=== PATIENT | male | born 1960 | race Caucasian/White ===

== ENCOUNTER 2019-03-18 03:04 | Inpatient (IN) | payer OTHER, MEDICARE ==
[2019-03-18] VITALS (8 sets, daily range): BP systolic 107–166; BP diastolic 51–70
[~2019-03-18] VITALS: Ht 177.8 cm; Wt 74.8 kg
[2019-03-18] MEDS ORDERED: TRAMADOL 50 MG50 MG PO (03:23)
[2019-03-18] MEDS ORDERED: TOPROL XL100 MG PO (03:23)
[2019-03-18] MEDS ORDERED: SYNTHROID150 MCG PO (03:24)
[2019-03-18] MEDS ORDERED: CHLORTHALIDONE25 MG PO (03:25)
[2019-03-18] MEDS ORDERED: VITAMIN D250000 UNIT PO (03:25)
[2019-03-18] MEDS ORDERED: ACTOS 45 MG45 M1 PO (03:25)
[2019-03-18] MEDS ORDERED: TAMBOCOR 100 M100 M1 PO (03:25)
[2019-03-18] MEDS ORDERED: LIPITOR20 MG PO (03:26)
[2019-03-18] MEDS ORDERED: KLOR-CON M2020 MEQ PO (03:26)
[2019-03-18] MEDS ORDERED: COZAAR 25 MG TA25 M2 PO (03:26)
[2019-03-18] MEDS ORDERED: FERRETTS325 MG PO (03:26)
[2019-03-18] MEDS ORDERED: VITAMIN B12-FO1 EAC1 PO (03:26)
[2019-03-18] MEDS ORDERED: TRULICITY1.5 MG/0.5 SUBQ (03:27)
[2019-03-18] MEDS ORDERED: RANITIDINE HCL300 MG PO (03:27)
[2019-03-18] MEDS ORDERED: ULORIC40 MG PO (03:28)
[2019-03-18] MEDS ORDERED: VOLTAREN GEL 1100 G1 TOP (03:28)
[2019-03-18] MEDS ORDERED: TRESIBA100 UNIT/1 SUBQ (03:28)
[2019-03-18 03:49] LABS: ABSOLUTE EOSINOPHILS 0.1 thou/uL (0.0-0.7); ABSOLUTE LYMPHOCYTES 2.3 thou/uL (0.8-5.3); ABSOLUTE MONOCYTES 0.4 thou/uL (0.0-1.2); ABSOLUTE NEUTROPHILS 5.6 thou/uL (1.6-8.1); BASOPHILS 0.5 %; EOSINOPHILS 1.6 %; HEMATOCRIT 43.8 % (42.0-52.0); HEMOGLOBIN 14.4 gm/dL (14.0-18.0); LYMPHOCYTES 27.1 %; MCH 28.7 pg (26.0-34.0); MCHC 32.8 g/dL (28.0-37.0); MCV 87.5 fL (80.0-100.0); MONOCYTES 4.3 %; MPV 7.9 fl. (7.2-11.1); NUCLEATED RBCS 0 /100WBC; PLATELET COUNT* 178 thou/uL (150-400); POLYS 66.5 %; RBC 5.01 mil/uL (4.50-6.00); RDW-CV 14.6 % (10.5-14.5); WBC 8.4 thou/uL (4.0-11.0)
[2019-03-18 04:07] LABS: CALCIUM 8.7 mg/dL (8.5-10.1); CREATININE 1.4 mg/dL (0.6-1.3); POTASSIUM 3.2 mmol/L (3.5-5.1)
[2019-03-18 04:18] LABS: ALBUMIN 3.6 g/dL (3.4-5.0); TOTAL BILIRUBIN 0.3 mg/dL (<0.1-1.0); TOTAL PROTEIN 6.7 g/dL (6.4-8.2)
[2019-03-18] MEDS ORDERED: ASA81BEC PO (10:36)
--- NOTE | 2019-03-18 11:26 | EKG ---
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 03/18/19 1125 [id number] James Justice MD, [facility] /EPI
--- NOTE | 2019-03-18 14:25 | 2DMMODE ---
[place] [address] 2 D/M-MODE ECHOCARDIOGRAM Name: AUSTEN HERNANDEZ Room: [facility] ADM IN [facility]#: [id number] Admission: 03/18/19 Attend Phys: Mac Little Discharge: Date of : 60 Date of Service: 03/18/19 1424 Report #: [id number] THIS REPORT FOR: //name// ADDENDUM APPROVED REPORT Study performed: 03/18/2019 11:19:41 EXAM: Comprehensive 2D, Doppler, and color-flow Echocardiogram Patient Location: In-Patient Room #: [facility] Status: routine BSA: 2.65 HR: 70 bpm BP: 114/69 mmHg Rhythm: NSR Other Information Technically limited study due to body habitus, poor endocardial definition. Indications Arrhythmia Echo Enhancing Agent Indication: Endocardial border delineation Agent(s) / Amount(s) Used: Optison 3 cc 2D Dimensions IVSd: 12.05 (7-11mm) LVOT Diam: 19.78 (18-24mm) LVDd: 61.81 mm PWd: 9.94 (7-11mm) Ascending Ao: 40.42 (22-36mm) LVDs: 38.09 (25-40mm) Aortic Root: 29.69 mm Volumes Left Atrial Volume (Systole) LA ESV Index: 25.80 mL/m2 Aortic Valve AoV Peak Kirill.: 2.02 m/s AO Peak Gr.: 16.37 mmHg LVOT Max P.44 mmHg AO Mean Gr.: 8.92 mmHg LVOT Mean P.92 mmHg LVOT Max V: 1.45 m/s AO V2 VTI: 46.57 cm LVOT Mean V: 0.90 m/s SANA (VTI): 2.33 cm2 LVOT V1 VTI: 35.29 [place] [address] 2 D/M-MODE ECHOCARDIOGRAM Name: AUSTEN HERNANDEZ Room: [address] IN [facility].#: [id number] Admission: 03/18/19 Attend Phys: Mac Little Discharge: Date of : 60 Date of Service: 03/18/19 1424 Report #: [id number] Mitral Valve E/A Ratio: 1.07 MV Decel. Time: 219.63 ms MV E Max Kirill.: 1.12 m/s MV PHT: 63.69 ms MVA (PHT): 3.45 cm2 TDI E/Lateral E': 10.18 E/Medial E': 8.00 Medial E' Kirill.: 0.14 m/s Lateral E' Kirill.: 0.11 m/s Pulmonary Valve PV Peak Kirill.: 1.12 m/s PV Peak Gr.: 5.06 mmHg Tricuspid Valve RAP Estimate: 5.00 mmHg TR Peak Gr.: 25.11 mmHg RVSP: 30.00 mmHg PA Pressure: 30.00 mmHg Left Ventricle The left ventricle is normal size. There is normal LV segmental wall motion. There is normal left ventricular wall thickness. Left ventricular systolic function is normal. The left ventricular ejection fraction is within the normal range. LVEF is 60-65%. The left ventricular diastolic function is normal. Right Ventricle The right ventricle is normal size. The right ventricular systolic function is normal. Atria The left atrium size is normal. The right atrium size is normal. Aortic Valve The aortic valve is normal in structure. No aortic regurgitation is present. There is no aortic valvular stenosis. Mitral Valve The mitral valve is normal in structure. Trace mitral regurgitation. No evidence of mitral valve stenosis. Tricuspid Valve The tricuspid valve is normal in structure[place] [address] 2 D/M-MODE ECHOCARDIOGRAM Name: AUSTEN HERNANDEZ Room: [address] IN [facility]#: [id number] Admission: 03/18/19 Attend Phys: Mac Little Discharge: Date of : 60 Date of Service: 03/18/19 1424 Report #: [id number] regurgitation. Pulmonic Valve Pulmonic valve is not well visualized. There is no pulmonic valvular regurgitation. Great Vessels Aortic root is mildly dilated. IVC is normal in size and collapses >50% with inspiration. Pericardium There is no pericardial effusion. <Conclusion> Left ventricular systolic function is normal. The left ventricular ejection fraction is within the normal range. <ELECTRONICALLY SIGNED> By: Juan Pablo Rey MD, FACC 03/18/19 1424 1424 1424 Juan Pablo Rey MD, FACC /INF
--- NOTE | 2019-03-19 14:24 | CON ---
[address] [address] CONSULTATION Name: DAVIDAUSTEN L Room: [address] IN .R.#: [id number] Admission: 03/18/19 Attend Phys: Florinda Swain Discharge: 03/18/19 Date of : 60 Report #: [id number] THIS REPORT FOR: //name// CC: Donna Little DATE OF SERVICE: 03/18/2019 HISTORY OF PRESENT ILLNESS: A 58-year-old male patient who was evaluated by me for neurological etiology for the patient's symptom. He presented with multiple symptoms like chest pain and dizziness. He says he kind of leans towards one side. It is not clear how long his symptoms are going on. When I saw this patient, his symptoms are actually better, but he still had some room spinning. REVIEW OF SYSTEMS: Indicate that he has some difficulty with walking because of balance. He does complain of some dizziness and vertigo. He has morbid obesity. He says he has history of neuropathy. He has a history of diabetes, hypertension, thyroid disease, and kidney disease. PAST MEDICAL HISTORY: Negative for any stroke. FAMILY HISTORY: Negative for early-age stroke. SOCIAL HISTORY: He does not smoke. PHYSICAL EXAMINATION: Indicates he is alert. He is responsive. He can follow simple commands. His speech looks intact. Cranial nerve examination 2-12 does not appear to be showing any abnormality. Neuromuscular examination is symmetrical. Cardiac and respiratory examinations appear noncontributory. Blood pressure is 107/51, pulse is 55, temperature is 97.9. He did have an MRI, MRA, and a carotid Doppler, which were unremarkable. IMPRESSION AND PLAN: It is unlikely that there is any neurological etiology for the patient's dizziness. He needs a sleep study as an outpatient through his family doctor to exclude sleep apnea. Management should be to evaluate the patient for any non-neurological etiology for the patient's dizziness. From a neurological perspective, I will sign off and I will suggest concentrating on other workup and other recommendation as described above. More than 50 minutes of time was spent taking care of this patient today and majority of that time was spent counseling and coordinating. <ELECTRONICALLY SIGNED> By: Hunter Armando MD 03/19/19 1424 1819 13Hunter Armando MD /nt
== END 2019-03-18 19:48 | disposition home or self-care (01) | DRG 149 ==
LOC: M.ERS 03:04 → M.2W 04:32 → M.TBA-ER 04:32 → M.2W 04:52
PROVIDERS: Emergency Medicine Emergency Medical Services; ADMIT Internal Medicine
PROC: 5A09357 Assistance with Respiratory Ventilation, Less than 24 Consecutive Hours, Continuous Positive Airway Pressure (ICD-10-PCS; principal; 2019-03-18)
DX: H81.23 Vestibular neuronitis, bilateral (principal); K85.90 Acute pancreatitis without necrosis or infection, unspecified; I10 Essential (primary) hypertension; E66.01 Morbid (severe) obesity due to excess calories; K21.9 Gastro-esophageal reflux disease without esophagitis; E78.5 Hyperlipidemia, unspecified; E11.40 Type 2 diabetes mellitus with diabetic neuropathy, unspecified; R27.0 Ataxia, unspecified; E11.42 Type 2 diabetes mellitus with diabetic polyneuropathy; Z68.23 Body mass index [BMI] 23.0-23.9, adult; Z88.8 Allergy status to other drugs, medicaments and biological substances; Z82.49 Family history of ischemic heart disease and other diseases of the circulatory system

== ENCOUNTER → 2019-04-26 | Outpatient (CLI) | payer OTHER, MEDICARE ==
[~2019-04-26] MED LIST: ACTOS 45 MG45 M1 PO; ASA81BEC PO; CHLORTHALIDONE25 MG PO; COZAAR 25 MG TA25 M2 PO; FERRETTS325 MG PO; KLOR-CON M2020 MEQ PO; LIPITOR20 MG PO; RANITIDINE HCL300 MG PO; SYNTHROID150 MCG PO; TAMBOCOR 100 M100 M1 PO; TOPROL XL100 MG PO; TRAMADOL 50 MG50 MG PO; TRESIBA100 UNIT/1 SUBQ; TRULICITY1.5 MG/0.5 SUBQ; ULORIC40 MG PO; VITAMIN B12-FO1 EAC1 PO; VITAMIN D250000 UNIT PO; VOLTAREN GEL 1100 G1 TOP
== END ==
LOC: M.RAD 11:59
DX: M79.662 Pain in left lower leg (principal); M25.572 Pain in left ankle and joints of left foot

== ENCOUNTER 2019-05-15 09:14 | Emergency (ER) | payer OTHER, MEDICARE ==
[~2019-05-15] VITALS: Ht 177.8 cm; Wt 163.3 kg
[2019-05-15] MEDS ORDERED: PERCOCET 5-3251 EACH PO (09:29)
[2019-05-15 09:37] LABS: INFLUENZA A ANTIGEN Positive (Negative); INFLUENZA B ANTIGEN Negative (Negative)
[2019-05-15] MEDS ORDERED: IBUPROFEN 800800 MG PO (10:24)
[2019-05-15] MEDS ORDERED: ZOFRAN ODT4 MG DISSOLVE (10:24)
[2019-05-15 10:31] VITALS: BP 132/79
== END 2019-05-15 10:33 | disposition home or self-care (01) ==
LOC: M.ERS 09:14
PROVIDERS: Family Medicine
DX: J09.X2 Influenza due to identified novel influenza A virus with other respiratory manifestations (principal); I10 Essential (primary) hypertension; E11.40 Type 2 diabetes mellitus with diabetic neuropathy, unspecified; E66.01 Morbid (severe) obesity due to excess calories; K21.9 Gastro-esophageal reflux disease without esophagitis; Z68.43 Body mass index [BMI] 50.0-59.9, adult; Z79.4 Long term (current) use of insulin; Z88.8 Allergy status to other drugs, medicaments and biological substances